=== PATIENT | female | born 2000 | race African-American/Black ===

== ENCOUNTER 2024-01-16 09:22 | Emergency (ER) | payer BC, MEDICAID ==
[~2024-01-16] VITALS: Ht 162.6 cm; Wt 73.0 kg
[2024-01-16 09:31] VITALS: O2SAT 98
[2024-01-16 09:58] LABS: CHLORIDE 104 mEq/L (98-107); POTASSIUM 3.4 mEq/L (3.5-5.1); SODIUM 138 mEq/L (136-145)
[2024-01-16 09:59] LABS: CALCIUM 9.3 mg/dL (8.7-10.4); CARBON DIOXIDE 23 mEq/L (21-32)
[2024-01-16 10:04] LABS: CREATININE 0.7 mg/dL (0.6-1.0); GLUCOSE 119 mg/dL (70-105); UREA NITROGEN BLOOD 13 mg/dL (9-23)
[2024-01-16 10:06] LABS: ALANINE AMINOTRANSFERASE 14 IU/L (10-49); ASPARTATE AMINOTRANSFERASE 18 IU/L (<34)
[2024-01-16 10:07] LABS: BILIRUBIN DIRECT 0.2 mg/dL (<=3.0); BILIRUBIN TOTAL 0.6 mg/dL (0.1-1.0); PROTEIN TOTAL 8.3 g/dL (6.0-8.3)
[2024-01-16 10:09] LABS: BASOPHILS % 0.2 % (0.0-2.0); EOSINOPHILS % 0.1 % (0.0-5.0); HEMATOCRIT. 37.9 % (36.0-48.0); HEMOGLOBIN. 12.7 g/dL (12.0-16.0); LYMPHOCYTES % 15.2 % (20.0-50.0); MEAN CORPUSCULAR HEMOGLOBIN 27.6 pg (28.0-32.0); MEAN CORPUSCULAR HGB CONC 33.4 g/dL (31.0-37.0); MEAN CORPUSCULAR VOLUME 82.5 fL (81.0-99.0); MEAN PLATELET VOLUME 7.2 fl (7.4-10.4); MONOCYTES % 6.7 % (2.0-8.0); NEUTROPHILS % 77.8 % (40.0-76.0); PLATELET 334 x1000/uL (130-400); RED BLOOD CELL COUNT 4.59 mill/uL (4.2-5.4); RED CELL DISTRIBUTION WIDTH 14.2 % (11.6-14.6); WHITE BLOOD COUNT 9.3 x1000/uL (4.5-11.0)
[2024-01-16 10:10] LABS: HCG SCREEN POSITIVE
[2024-01-16] MEDS: SODIUM CHLORIDE 0.9% 1,000 ML IV ONE (10:47)
[2024-01-16] MEDS: MAGNESIUM/ALUMINUM HYDROXIDE/SIMETHICONE 30ML UDC PO STA (10:47)
[2024-01-16] MEDS: FAMOTIDINE 20MG TABLET PO ONE (10:48)
[2024-01-16] MEDS: ONDANSETRON HCL 4MG/2ML INJ IV ONE (10:50)
[2024-01-16] MEDS: DICYCLOMINE 10 MG/5 ML ORAL SYR PO STA (11:13)
[2024-01-16] MEDS: DICYCLOMINE HCL 10MG CAPSULE PO ONE (11:13)
[2024-01-16 11:17] LABS: CLARITY URINE TURBID (CLEAR); COLOR URINE DARK YELLOW (YELLOW); GLUCOSE URINE NEGATIVE (NEGATIVE); KETONES URINE 4+ (NEGATIVE); LEUKOCYTE ESTERASE URINE 2+ (NEGATIVE); NITRITE URINE NEGATIVE (NEGATIVE); OCCULT BLOOD URINE NEGATIVE (NEGATIVE); PROTEIN URINE 2+ (NEGATIVE)
[2024-01-16 11:58] LABS: TROPONIN I HIGH SENSITIVITY < 4 ng/L (3.0-34)
[2024-01-16 12:13] LABS: MUCUS URINE 3+ /lpf (< = 2+); SQUAMOUS EPITHELIAL CELL URINE 3+ /lpf (RARE/1+)
[2024-01-16 12:15] LABS: BACTERIA URINE 3+; RBC URINE 0-2 /hpf (0-2); WBC URINE 25-50 /hpf (0-2)
[2024-01-16] MEDS: METOCLOPRAMIDE HCL 10MG/2ML VIAL IV ONE (12:40)
[2024-01-16] MEDS: CEFTRIAXONE 1GM/50ML 50 ML IV ONE (12:40)
[2024-01-16] MEDS: FAMOTIDINE 20MG/2ML VIAL IV ONE (12:40)
[2024-01-16] MEDS: PYRIDOXINE 100 MG/ML 1ML IV ONE (15:04)
[2024-01-16] MEDS ORDERED: DOXY1TAB3 MT (15:10)
[2024-01-16] MEDS ORDERED: ONDA-239 PO (15:10)
[2024-01-16] MEDS ORDERED: CEFP200T14 MT (15:13)
[2024-01-16 15:29] VITALS: BP 105/51; PULSE 99; RESP 16; TEMP 36.78072; O2SAT 98
== END 2024-01-16 15:29 | disposition home or self-care (01) ==
LOC: ER 09:22
DX: O21.0 Mild hyperemesis gravidarum (principal); O23.41 Unspecified infection of urinary tract in pregnancy, first trimester; N39.0 Urinary tract infection, site not specified; J45.909 Unspecified asthma, uncomplicated; Z88.8 Allergy status to other drugs, medicaments and biological substances; Z3A.01 Less than 8 weeks gestation of pregnancy
CPT/HCPCS: 80076; 80048; 81003; 81025; 84703; 84702; 83690; 85025; 87086; 84484; 36415; 71045; 76801; 76817; 93005; 96361; 96365; 96366; 96375; 99285; J0696; J3490; J2765; J2405; J3415; J7030; Z7610 ×2